=== PATIENT | male | born 1975 | race Caucasian/White ===

== ENCOUNTER 2017-01-05 15:00 | Emergency (ER) | payer MEDICAID ==
[~2017-01-05] VITALS: Ht 172.7 cm; Wt 95.3 kg
[~2017-01-05 15:00] MED LIST: CIPRO250 MG PO; CIPRO500 MG PO; CIPROFLOXACIN500 MG PO; COUMADIN6 MG PO; DITROPAN XL15 MG; HYDROCODONE BIT1 T11 PO; MACROBID100 M1 PO; NORCO 5-325 TA1 EACH PO; NORCO 7.5-3251 EACH PO; OXYBUTYNIN CHLO15 MG PO; PERCOCET 325 MG1 TA2 PO; PERCOCET 325 MG1 TA7 PO; TYLENOL WITH CO1 TA1 PO; VICODIN 5/500 505 MG PO; VICODIN 500 MG-1 TAB PO; VICODIN1 TAB PO; Vicodin 5/500 505 MG PO; XARELTO10 MG PO
[2017-01-05 15:41] LABS: BILIRUBIN 1+ (NEGATIVE); BLOOD 1+ (NEGATIVE); CLARITY CLEAR (CLEAR); COLOR YELLOW (YELLOW); GLUCOSE NEGATIVE (NEGATIVE); KETONE NEGATIVE (NEGATIVE); LEUKO ESTERASE NEGATIVE (NEGATIVE); NITRITE NEGATIVE (NEGATIVE); PH 5.5 (5.0-9.0); PROTEIN NEGATIVE (NEGATIVE); SPECIFIC GRAVITY >= 1.030 (1.005-1.030); UROBILINOGEN 0.2 E.U./dl (0.2-1.0)
[2017-01-05 15:57] LABS: BACTERIA TRACE; MUCOUS 2+; URINE REFLEX COMMENT YES (NO)
[2017-01-05] MEDS ORDERED: CIPRO500 MG PO (16:13)
[2017-01-05] MEDS ORDERED: HYDROCODONE BIT1 T11 PO (16:13)
== END 2017-01-05 16:15 | disposition home or self-care (01) ==
LOC: ED 15:00
PROVIDERS: Nurse Practitioner Family
DX: R30.0 Dysuria (principal); M54.5 Low back pain; F17.200 Nicotine dependence, unspecified, uncomplicated; Z88.0 Allergy status to penicillin; Z79.899 Other long term (current) drug therapy

== ENCOUNTER 2017-10-05 17:41 | Emergency (ER) | payer MEDICAID ==
[~2017-10-05] VITALS: Ht 170.1 cm; Wt 95.3 kg
[2017-10-05 18:15] LABS: BILIRUBIN NEGATIVE (NEGATIVE); BLOOD TRACE-INTACT (NEGATIVE); CLARITY CLEAR (CLEAR); COLOR YELLOW (YELLOW); GLUCOSE NEGATIVE (NEGATIVE); KETONE NEGATIVE (NEGATIVE); LEUKO ESTERASE NEGATIVE (NEGATIVE); NITRITE POSITIVE (NEGATIVE); PH 5.5 (5.0-9.0); SPECIFIC GRAVITY >= 1.030 (1.005-1.030); UROBILINOGEN 0.2 E.U./dl (0.2-1.0)
[2017-10-05 18:23] LABS: BACTERIA 3+
[2017-10-05 18:23] LABS: BASO % 0.3 % (0.0-1.0); EOS # 0.3 10*3/uL (0.0-0.4); EOS % 3.4 % (1.0-4.0); HEMATOCRIT 43.6 % (42.0-52.0); HEMOGLOBIN 14.1 g/dl (14.0-18.0); LYMPH # 2.6 10*3/uL (1.3-4.4); LYMPH % 29.4 % (27.0-41.0); MEAN CELL VOLUME 90.8 fl (80.0-94.0); MEAN CORPUSCULAR HGB 29.4 pg (27.0-31.0); MEAN CORPUSCULAR HGB CONC 32.3 g/dl (33.0-37.0); MONO # 0.9 10*3/uL (0.1-1.0); MONO % 9.6 % (3.0-9.0); NEUT # 5.1 10*3/uL (2.3-7.9); NEUT % 56.7 % (47.0-73.0); PLATELET COUNT AUTOMATED 251 10*3/uL (130-400); RED CELL DISTRI WIDTH 13.8 % (0-14.5)
[2017-10-05 18:39] LABS: ALBUMIN 3.7 gm/dl (3.1-4.5); ALKALINE PHOSPHATASE 96 U/L (45-117); BUN 14 mg/dl (7-24); CHLORIDE 106 mmol/L (98-107); CREATININE 0.71 mg/dL (0.70-1.30); POTASSIUM 4.5 mmol/L (3.5-5.1); SGOT/AST 35 IU/L (3-35); SGPT/ALT 79 U/L (12-78); SODIUM 141 mmol/L (136-145); TOTAL PROTEIN 7.8 gm/dL (6.4-8.2); TROPONIN I < 0.015 ng/ml (<0.045)
[2017-10-05] MEDS ORDERED: NORCO 5-325 TA1 EACH PO (18:46)
[2017-10-05] MEDS ORDERED: CIPRO500 MG PO (18:46)
== END 2017-10-05 19:00 | disposition home or self-care (01) ==
LOC: ED 17:41
PROVIDERS: Nurse Practitioner Family
DX: N39.0 Urinary tract infection, site not specified (principal); Z98.890 Other specified postprocedural states; Z79.899 Other long term (current) drug therapy; Z88.0 Allergy status to penicillin

== ENCOUNTER → 2017-11-16 | Outpatient (CLI) | payer MEDICAID | END | disposition home or self-care (01) | LOC: CT 14:32 | DX: K80.20 Calculus of gallbladder without cholecystitis without obstruction (principal) ==

== ENCOUNTER → 2017-11-25 | Outpatient (CLI) | payer MEDICAID | END | disposition home or self-care (01) | LOC: CT 14:51 | DX: R91.1 Solitary pulmonary nodule (principal); Z87.891 Personal history of nicotine dependence ==

== ENCOUNTER → 2018-06-03 | Outpatient (CLI) | payer MEDICAID ==
[~2018-06-03] MED LIST changes: +ATARAX,VISTARIL50 MG PO; +KENALOG 0.1%80 GM T
== END | disposition home or self-care (01) ==
LOC: CT 10:36
DX: K80.20 Calculus of gallbladder without cholecystitis without obstruction (principal)

== ENCOUNTER 2018-12-06 13:14 | Emergency (ER) | payer MEDICAID ==
[~2018-12-06] VITALS: Wt 99.8 kg
[2018-12-06 13:39] LABS: BILIRUBIN NEGATIVE (NEGATIVE); BLOOD 1+ (NEGATIVE); CLARITY SL CLOUDY (CLEAR); COLOR YELLOW (YELLOW); GLUCOSE NEGATIVE (NEGATIVE); KETONE NEGATIVE (NEGATIVE); LEUKO ESTERASE NEGATIVE (NEGATIVE); NITRITE NEGATIVE (NEGATIVE); SPECIFIC GRAVITY 1.025 (1.005-1.030); UROBILINOGEN 0.2 E.U./dl (0.2-1.0)
[2018-12-06 13:46] LABS: MUCOUS 1+
[2018-12-06 14:02] LABS: BASO % 0.3 % (0.0-1.0); EOS # 0.2 10*3/uL (0.0-0.4); EOS % 2.6 % (1.0-4.0); HEMATOCRIT 45.9 % (42.0-52.0); HEMOGLOBIN 15.2 g/dl (14.0-18.0); LYMPH # 2.3 10*3/uL (1.3-4.4); LYMPH % 28.3 % (27.0-41.0); MEAN CORPUSCULAR HGB 29.8 pg (27.0-31.0); MEAN CORPUSCULAR HGB CONC 33.1 g/dl (33.0-37.0); MONO # 0.8 10*3/uL (0.1-1.0); MONO % 9.9 % (3.0-9.0); NEUT # 4.6 10*3/uL (2.3-7.9); NEUT % 58.5 % (47.0-73.0); PLATELET COUNT AUTOMATED 283 10*3/uL (130-400); RED CELL DISTRI WIDTH 14.1 % (0-14.5); WHITE BLOOD COUNT 7.9 10*3/uL (4.8-10.8)
[2018-12-06 14:17] LABS: BUN 12 mg/dl (7-24); CHLORIDE 108 mmol/L (98-107); CREATININE 0.74 mg/dL (0.70-1.30); SODIUM 140 mmol/L (136-145)
[2018-12-06] MEDS ORDERED: Motrin,Rufen800 MG PO (15:55)
[2018-12-24] MEDS ORDERED: PHENERGAN25 M3 PO (18:19)
== END 2018-12-06 15:59 | disposition home or self-care (01) ==
LOC: ED 13:14
PROVIDERS: Emergency Medicine
DX: R32 Unspecified urinary incontinence (principal); M54.9 Dorsalgia, unspecified; F17.200 Nicotine dependence, unspecified, uncomplicated; Z88.0 Allergy status to penicillin; Z88.1 Allergy status to other antibiotic agents; Z79.899 Other long term (current) drug therapy; Z87.440 Personal history of urinary (tract) infections

== ENCOUNTER → 2019-06-15 | Outpatient (CLI) | payer MEDICAID ==
[~2019-06-15] MED LIST changes: +Motrin,Rufen800 MG PO; +PHENERGAN25 M3 PO
== END | disposition home or self-care (01) ==
LOC: CT 06-05 10:00
DX: I25.10 Atherosclerotic heart disease of native coronary artery without angina pectoris (principal)

== ENCOUNTER → 2020-07-15 | Outpatient (CLI) | payer MEDICAID | END | disposition home or self-care (01) | LOC: CT 06-17 11:00 | PROVIDERS: ATTEND Internal Medicine Critical Care Medicine | DX: R91.1 Solitary pulmonary nodule (principal); I25.10 Atherosclerotic heart disease of native coronary artery without angina pectoris; Z98.890 Other specified postprocedural states ==

== ENCOUNTER 2021-07-14 08:33 | Emergency (ER) | payer MEDICAID ==
[2021-07-14] MEDS ORDERED: PREDNISONE50 MG PO (10:22)
== END 2021-07-14 10:48 | disposition home or self-care (01) ==
LOC: ED 08:33
DX: L25.9 Unspecified contact dermatitis, unspecified cause (principal); F17.200 Nicotine dependence, unspecified, uncomplicated; Z88.0 Allergy status to penicillin; Z79.899 Other long term (current) drug therapy

== ENCOUNTER 2021-10-29 13:16 | Emergency (ER) | payer MEDICAID ==
[~2021-10-29 13:16] MED LIST changes: +PREDNISONE50 MG PO
[2021-10-29 14:35] LABS: BILIRUBIN Negative (Negative); BLOOD Negative (Negative); CLARITY Clear (Clear); COLOR Yellow (Yellow); GLUCOSE Negative (Negative); KETONE Negative (Negative); LEUKO ESTERASE Trace (Negative); NITRITE Negative (Negative); SPECIFIC GRAVITY 1.025 (1.001-1.030); UROBILINOGEN 0.2 E.U./dl (0.0-1.0)
[2021-10-29 14:41] LABS: MUCOUS 2+
[2021-10-29 14:42] LABS: BACTERIA 1+; EPITHELIAL CELLS 0-2
[2021-10-29] MEDS ORDERED: CIPRO500 MG PO (14:46)
== END 2021-10-29 15:01 | disposition home or self-care (01) ==
LOC: ED 13:16
PROVIDERS: Physician Assistant
DX: N39.0 Urinary tract infection, site not specified (principal)

== ENCOUNTER 2021-12-19 15:22 | Emergency (ER) | payer MEDICAID ==
[~2021-12-19] VITALS: Wt 99.8 kg
[2021-12-19] MEDS ORDERED: VIBRAMYCIN100 MG PO (15:55)
== END 2021-12-19 16:17 | disposition home or self-care (01) ==
LOC: ED 15:22
DX: A26.0 Cutaneous erysipeloid (principal); M25.511 Pain in right shoulder; M25.512 Pain in left shoulder; Z88.0 Allergy status to penicillin; Z79.899 Other long term (current) drug therapy; Z79.2 Long term (current) use of antibiotics; Z98.890 Other specified postprocedural states

== ENCOUNTER 2022-03-02 09:23 | Inpatient (IN) | payer MEDICAID ==
[~2022-03-02] VITALS: Ht 170.1 cm; Wt 98.0 kg
[2022-03-02] VITALS (11 sets, daily range): BP systolic 123–167; BP diastolic 83–98
[~2022-03-02 09:23] MED LIST changes: +VIBRAMYCIN100 MG PO
[2022-03-02 10:18] LABS: BASO % 0.3 % (0.0-1.0); EOS # 0.2 10*3/uL (0.0-0.4); EOS % 1.9 % (1.0-4.0); HEMATOCRIT 40.6 % (42.0-52.0); LYMPH # 2.7 10*3/uL (1.3-4.4); LYMPH % 23.1 % (27.0-41.0); MEAN CELL VOLUME 87.7 fl (80.0-94.0); MEAN CORPUSCULAR HGB 29.8 pg (27.0-31.0); MEAN PLATELET VOLUME 9.2 fl (9.6-12.3); MONO # 1.4 10*3/uL (0.1-1.0); MONO % 12.1 % (3.0-9.0); NEUT # 7.3 10*3/uL (2.3-7.9); NEUT % 62.1 % (47.0-73.0); PLATELET COUNT AUTOMATED 284 10*3/uL (130-400); RED BLOOD COUNT 4.63 10*6/uL (4.50-5.90); RED CELL DISTRI WIDTH 13.6 % (0-14.5); WHITE BLOOD COUNT 11.7 10*3/uL (4.8-10.8)
[2022-03-02 10:32] LABS: ALKALINE PHOSPHATASE 90 U/L (45-117); BUN 11 mg/dl (7-24); CHLORIDE 108 mmol/L (98-107); POTASSIUM 3.7 mmol/L (3.5-5.1); SGOT/AST 27 IU/L (3-35); SGPT/ALT 61 U/L (12-78); SODIUM 138 mmol/L (136-145); TOTAL PROTEIN 7.6 gm/dL (6.4-8.2)
[2022-03-02] MEDS ORDERED: OMEPRAZOLE40 MG PO (12:24)
[2022-03-02] MEDS ORDERED: ATORVASTATIN CA10 M1 PO (12:24)
[2022-03-03] VITALS: BP 142/74
[2022-03-03 08:00] VITALS: BP 99/60
[2022-03-03 08:03] LABS: BASO % 0.2 % (0.0-1.0); EOS # 0.1 10*3/uL (0.0-0.4); HEMATOCRIT 33.8 % (42.0-52.0); LYMPH # 1.7 10*3/uL (1.3-4.4); MEAN CELL VOLUME 89.2 fl (80.0-94.0); MEAN CORPUSCULAR HGB 29.8 pg (27.0-31.0); MEAN CORPUSCULAR HGB CONC 33.4 g/dl (33.0-37.0); MEAN PLATELET VOLUME 9.3 fl (9.6-12.3); MONO # 1.2 10*3/uL (0.1-1.0); MONO % 13.6 % (3.0-9.0); NEUT % 65.9 % (47.0-73.0); PLATELET COUNT AUTOMATED 219 10*3/uL (130-400); RED BLOOD COUNT 3.79 10*6/uL (4.50-5.90); RED CELL DISTRI WIDTH 13.7 % (0-14.5); WHITE BLOOD COUNT 9.1 10*3/uL (4.8-10.8)
[2022-03-03 08:20] LABS: BUN 10 mg/dl (7-24); CHLORIDE 107 mmol/L (98-107); CREATININE 0.76 mg/dL (0.70-1.30); POTASSIUM 3.5 mmol/L (3.5-5.1); SODIUM 137 mmol/L (136-145)
[2022-03-03 08:28] LABS: THYROID STIM HORMONE (HS) 0.284 uIU/ml (0.358-4.75)
[2022-03-03] MEDS ORDERED: HYDROCODONE-AC1 EAC1 PO (11:50)
[2022-03-03 12:00] VITALS: BP 124/91
[2022-03-03] MEDS ORDERED: VIBRAMYCIN HYC100 MG PO (15:19)
[2022-03-03 16:00] VITALS: BP 127/93
[2022-03-03 17:13] LABS: ACT PARTIAL THROMBO TIME 29.4 SECONDS (20.0-32.1)
== END 2022-03-03 18:06 | disposition home or self-care (01) | DRG 313 ==
LOC: ED 09:23 → EDHOLD 15:07 → 5E 15:07
PROVIDERS: Internal Medicine; Student in an Organized Health Care Education/Training Program; ADMIT Internal Medicine; ATTEND Internal Medicine
PROC: 0QSK04Z Reposition Left Fibula with Internal Fixation Device, Open Approach (ICD-10-PCS; principal; 2022-03-02)
PROC: 0QSH35Z Reposition Left Tibia with External Fixation Device, Percutaneous Approach (ICD-10-PCS; 2022-03-02)
DX: S82.402A Unspecified fracture of shaft of left fibula, initial encounter for closed fracture (principal); G82.20 Paraplegia, unspecified; Z20.822 Contact with and (suspected) exposure to COVID-19; S82.202A Unspecified fracture of shaft of left tibia, initial encounter for closed fracture; D72.829 Elevated white blood cell count, unspecified; D64.9 Anemia, unspecified; E87.8 Other disorders of electrolyte and fluid balance, not elsewhere classified; R73.9 Hyperglycemia, unspecified; G89.29 Other chronic pain; F17.210 Nicotine dependence, cigarettes, uncomplicated; S82.872A Displaced pilon fracture of left tibia, initial encounter for closed fracture; W18.39XA Other fall on same level, initial encounter; Z71.6 Tobacco abuse counseling; Y93.89 Activity, other specified; Y92.89 Other specified places as the place of occurrence of the external cause; Y99.8 Other external cause status; Z79.899 Other long term (current) drug therapy; Z88.0 Allergy status to penicillin; Z82.49 Family history of ischemic heart disease and other diseases of the circulatory system

== ENCOUNTER 2022-03-09 18:41 | Inpatient (IN) | payer MEDICAID ==
[~2022-03-09] VITALS: Ht 170.1 cm; Wt 99.1 kg
[~2022-03-09 18:41] MED LIST changes: +ATORVASTATIN CA10 M1 PO; +HYDROCODONE-AC1 EAC1 PO; +OMEPRAZOLE40 MG PO; +VIBRAMYCIN HYC100 MG PO
[2022-03-09 20:08] VITALS: BP 133/90
[2022-03-09 23:56] LABS: BILIRUBIN Negative (Negative); BLOOD Negative (Negative); CLARITY Clear (Clear); COLOR Yellow (Yellow); GLUCOSE Negative (Negative); KETONE Negative (Negative); LEUKO ESTERASE Negative (Negative); NITRITE Negative (Negative); UROBILINOGEN 0.2 E.U./dl (0.0-1.0)
[2022-03-09 23:58] VITALS: BP 136/86
[2022-03-10 00:12] LABS: WBC 0-2 wbc/hpf (0-5)
[2022-03-10 00:30] VITALS: BP 138/84
[2022-03-10] MEDS ORDERED: ZESTRIL20 MG PO (01:55)
[2022-03-10 06:13] LABS: BASO # 0.1 10*3/uL (0.0-0.1); BASO % 0.6 % (0.0-1.0); EOS # 0.3 10*3/uL (0.0-0.4); EOS % 2.5 % (1.0-4.0); HEMATOCRIT 33.4 % (42.0-52.0); LYMPH % 19.4 % (27.0-41.0); MEAN CELL VOLUME 90.5 fl (80.0-94.0); MEAN CORPUSCULAR HGB 29.8 pg (27.0-31.0); MEAN CORPUSCULAR HGB CONC 32.9 g/dl (33.0-37.0); MEAN PLATELET VOLUME 8.6 fl (9.6-12.3); MONO # 1.2 10*3/uL (0.1-1.0); NEUT # 6.5 10*3/uL (2.3-7.9); NEUT % 64.7 % (47.0-73.0); PLATELET COUNT AUTOMATED 395 10*3/uL (130-400); RED BLOOD COUNT 3.69 10*6/uL (4.50-5.90); RED CELL DISTRI WIDTH 13.3 % (0-14.5)
[2022-03-10 06:22] LABS: ACT PARTIAL THROMBO TIME 28.4 SECONDS (20.0-32.1)
[2022-03-10 06:44] LABS: ALKALINE PHOSPHATASE 88 U/L (45-117); BUN 18 mg/dl (7-24); CHLORIDE 107 mmol/L (98-107); CREATININE 0.74 mg/dL (0.70-1.30); POTASSIUM 3.7 mmol/L (3.5-5.1); SGOT/AST 24 IU/L (3-35); SGPT/ALT 48 U/L (12-78); SODIUM 137 mmol/L (136-145); TOTAL PROTEIN 7.1 gm/dL (6.4-8.2)
[2022-03-10 08:00] VITALS: BP 117/64
[2022-03-10 12:00] VITALS: BP 95/51
[2022-03-10 16:00] VITALS: BP 124/68
[2022-03-10 20:00] VITALS: BP 127/66
[2022-03-11] VITALS (10 sets, daily range): BP systolic 97–134; BP diastolic 41–92
[2022-03-11 06:27] LABS: BUN 14 mg/dl (7-24); CHLORIDE 107 mmol/L (98-107); POTASSIUM 4.1 mmol/L (3.5-5.1); SODIUM 140 mmol/L (136-145)
[2022-03-11 06:29] LABS: CREATININE 0.63 mg/dL (0.70-1.30)
[2022-03-11 06:32] LABS: BASO % 0.4 % (0.0-1.0); EOS # 0.3 10*3/uL (0.0-0.4); EOS % 3.7 % (1.0-4.0); HEMATOCRIT 33.2 % (42.0-52.0); LYMPH # 2.3 10*3/uL (1.3-4.4); LYMPH % 28.5 % (27.0-41.0); MEAN CELL VOLUME 91.5 fl (80.0-94.0); MEAN CORPUSCULAR HGB 29.5 pg (27.0-31.0); MEAN CORPUSCULAR HGB CONC 32.2 g/dl (33.0-37.0); MEAN PLATELET VOLUME 8.5 fl (9.6-12.3); MONO # 1.1 10*3/uL (0.1-1.0); NEUT # 4.4 10*3/uL (2.3-7.9); PLATELET COUNT AUTOMATED 372 10*3/uL (130-400); RED BLOOD COUNT 3.63 10*6/uL (4.50-5.90); RED CELL DISTRI WIDTH 13.3 % (0-14.5); WHITE BLOOD COUNT 8.1 10*3/uL (4.8-10.8)
[2022-03-11 22:16] LABS: BASO % 0.2 % (0.0-1.0); EOS % 0.4 % (1.0-4.0); HEMATOCRIT 31.3 % (42.0-52.0); LYMPH # 1.2 10*3/uL (1.3-4.4); LYMPH % 11.4 % (27.0-41.0); MEAN CELL VOLUME 91.3 fl (80.0-94.0); MEAN CORPUSCULAR HGB 29.2 pg (27.0-31.0); MEAN CORPUSCULAR HGB CONC 31.9 g/dl (33.0-37.0); MONO # 1.3 10*3/uL (0.1-1.0); MONO % 12.9 % (3.0-9.0); NEUT # 7.6 10*3/uL (2.3-7.9); NEUT % 74.4 % (47.0-73.0); PLATELET COUNT AUTOMATED 370 10*3/uL (130-400); RED BLOOD COUNT 3.43 10*6/uL (4.50-5.90); RED CELL DISTRI WIDTH 13.3 % (0-14.5); WHITE BLOOD COUNT 10.2 10*3/uL (4.8-10.8)
[2022-03-12] VITALS: BP 138/78
[2022-03-12 06:44] LABS: BASO % 0.2 % (0.0-1.0); EOS % 0.2 % (1.0-4.0); HEMATOCRIT 28.7 % (42.0-52.0); LYMPH # 1.3 10*3/uL (1.3-4.4); LYMPH % 13.3 % (27.0-41.0); MEAN CELL VOLUME 91.4 fl (80.0-94.0); MEAN CORPUSCULAR HGB 29.6 pg (27.0-31.0); MEAN CORPUSCULAR HGB CONC 32.4 g/dl (33.0-37.0); MEAN PLATELET VOLUME 8.5 fl (9.6-12.3); MONO # 1.5 10*3/uL (0.1-1.0); MONO % 15.4 % (3.0-9.0); NEUT # 6.6 10*3/uL (2.3-7.9); NEUT % 70.4 % (47.0-73.0); PLATELET COUNT AUTOMATED 346 10*3/uL (130-400); RED BLOOD COUNT 3.14 10*6/uL (4.50-5.90); RED CELL DISTRI WIDTH 13.3 % (0-14.5); WHITE BLOOD COUNT 9.4 10*3/uL (4.8-10.8)
[2022-03-12 06:46] LABS: BUN 13 mg/dl (7-24); CHLORIDE 106 mmol/L (98-107); CREATININE 0.73 mg/dL (0.70-1.30); POTASSIUM 3.6 mmol/L (3.5-5.1); SODIUM 138 mmol/L (136-145)
[2022-03-12 08:00] VITALS: BP 111/51
[2022-03-12 12:00] VITALS: BP 99/63
[2022-03-12 16:00] VITALS: BP 110/50
[2022-03-12 20:00] VITALS: BP 133/74
[2022-03-13] VITALS: BP 118/87
[2022-03-13 08:00] VITALS: BP 106/55
[2022-03-13 12:00] VITALS: BP 95/46
[2022-03-13] MEDS ORDERED: HYDROCODONE-AC1 EAC1 PO (12:39)
[2022-03-13] MEDS ORDERED: LISINOPRIL10 M1 PO (12:39)
[2022-03-13] MEDS ORDERED: VITAMIN D350 MC2 PO (12:39)
[2022-03-13] MEDS ORDERED: VIBRAMYCIN HYC100 MG PO (12:39)
== END 2022-03-13 17:03 | DRG 313 ==
LOC: ED 18:41 → 4E 23:45 → EDHOLD 23:45 → 4E 23:59
PROVIDERS: Family Medicine; Internal Medicine; Student in an Organized Health Care Education/Training Program; ADMIT Internal Medicine; ATTEND Internal Medicine
PROC: 0QSK04Z Reposition Left Fibula with Internal Fixation Device, Open Approach (ICD-10-PCS; principal; 2022-03-11)
PROC: 0QSH04Z Reposition Left Tibia with Internal Fixation Device, Open Approach (ICD-10-PCS; 2022-03-11)
PROC: 0QSL04Z Reposition Right Tarsal with Internal Fixation Device, Open Approach (ICD-10-PCS; 2022-03-11)
PROC: 0QSH04Z Reposition Left Tibia with Internal Fixation Device, Open Approach (ICD-10-PCS; 2022-03-11)
PROC: 0SPU0JZ Removal of Synthetic Substitute from Left Knee Joint, Femoral Surface, Open Approach (ICD-10-PCS; 2022-03-11)
DX: S82.871A Displaced pilon fracture of right tibia, initial encounter for closed fracture (principal); R39.15 Urgency of urination; M54.50 Low back pain, unspecified; E44.0 Moderate protein-calorie malnutrition; Z20.822 Contact with and (suspected) exposure to COVID-19; F12.90 Cannabis use, unspecified, uncomplicated; G82.20 Paraplegia, unspecified; G89.29 Other chronic pain; M54.9 Dorsalgia, unspecified; I10 Essential (primary) hypertension; K59.00 Constipation, unspecified; R73.9 Hyperglycemia, unspecified; D64.9 Anemia, unspecified; S82.872A Displaced pilon fracture of left tibia, initial encounter for closed fracture; S54.02XA Injury of ulnar nerve at forearm level, left arm, initial encounter; Z96.7 Presence of other bone and tendon implants; W18.39XA Other fall on same level, initial encounter; Y93.89 Activity, other specified; Y92.89 Other specified places as the place of occurrence of the external cause; Y99.8 Other external cause status; Z88.0 Allergy status to penicillin; Z82.49 Family history of ischemic heart disease and other diseases of the circulatory system; Z68.34 Body mass index [BMI] 34.0-34.9, adult

== ENCOUNTER → 2022-03-11 | Day surgery (SDC) | payer MEDICAID ==
[~2022-03-11] VITALS: Ht 170.1 cm; Wt 98.0 kg
[~2022-03-11] MED LIST changes: +LISINOPRIL10 M1 PO; +VITAMIN D350 MC2 PO; +ZESTRIL20 MG PO
== END | disposition home or self-care (01) ==
LOC: SDC 03-09 11:45
PROVIDERS: ATTEND Podiatrist
DX: Z47.2 Encounter for removal of internal fixation device (principal); K21.9 Gastro-esophageal reflux disease without esophagitis; Z86.718 Personal history of other venous thrombosis and embolism; Z88.0 Allergy status to penicillin

== ENCOUNTER → 2022-06-03 | Day surgery (SDC) | payer MEDICAID ==
[2022-06-01 13:24] VITALS: BP 142/82
[~2022-06-03] VITALS: Ht 170.1 cm; Wt 99.8 kg
[~2022-06-03] MED LIST changes: +TRAMADOL HCL50 MG PO
[2022-06-03 06:59] VITALS: BP 134/104
[2022-06-03 08:35] VITALS: BP 109/69
[2022-06-03 08:50] VITALS: BP 107/86
[2022-06-03 09:05] VITALS: BP 117/68
[2022-06-04 11:07] LABS: ACID FAST SPEC PROCESSING Tissue Grinding (.)
[2022-06-04 13:06] LABS: ACID FAST SPEC PROCESSING Tissue Grinding (.)
== END | disposition home or self-care (01) ==
LOC: SDC 06-01 13:15
PROVIDERS: ATTEND Podiatrist Foot & Ankle Surgery
DX: S91.001A Unspecified open wound, right ankle, initial encounter (principal); S91.002A Unspecified open wound, left ankle, initial encounter; I10 Essential (primary) hypertension; E78.00 Pure hypercholesterolemia, unspecified; K21.9 Gastro-esophageal reflux disease without esophagitis; F32.A Depression, unspecified; F17.210 Nicotine dependence, cigarettes, uncomplicated; Z88.0 Allergy status to penicillin; Z79.84 Long term (current) use of oral hypoglycemic drugs; Z79.899 Other long term (current) drug therapy; X58.XXXA Exposure to other specified factors, initial encounter; Y93.89 Activity, other specified; Y92.89 Other specified places as the place of occurrence of the external cause; Y99.8 Other external cause status

== ENCOUNTER → 2022-06-24 | Day surgery (SDC) | payer MEDICAID ==
[~2022-06-24] VITALS: Ht 170.1 cm; Wt 98.9 kg
[2022-06-24 09:50] VITALS: BP 145/87
[2022-06-24 13:41] VITALS: BP 131/82
[2022-06-24 13:55] VITALS: BP 134/87
[2022-06-26 11:07] LABS: ACID FAST SPEC PROCESSING Tissue Grinding (.)
== END | disposition home or self-care (01) ==
LOC: SDC 06-22 11:45
PROVIDERS: Podiatrist Foot & Ankle Surgery; ATTEND Podiatrist Foot & Ankle Surgery
DX: T84.84XA Pain due to internal orthopedic prosthetic devices, implants and grafts, initial encounter (principal); L97.328 Non-pressure chronic ulcer of left ankle with other specified severity; M86.8X7 Other osteomyelitis, ankle and foot; I10 Essential (primary) hypertension; K21.9 Gastro-esophageal reflux disease without esophagitis; F32.A Depression, unspecified; F43.10 Post-traumatic stress disorder, unspecified; E78.00 Pure hypercholesterolemia, unspecified; Z88.0 Allergy status to penicillin; X58.XXXA Exposure to other specified factors, initial encounter; Y93.89 Activity, other specified; Y92.89 Other specified places as the place of occurrence of the external cause; Y99.8 Other external cause status

== ENCOUNTER → 2022-08-26 | Day surgery (SDC) | payer MEDICAID ==
[~2022-08-26] VITALS: Ht 170.1 cm; Wt 98.9 kg
[2022-08-26 07:47] VITALS: BP 131/57
[2022-08-26 10:10] VITALS: BP 118/78
[2022-08-26 10:25] VITALS: BP 124/76
[2022-08-26 10:34] VITALS: BP 102/72
[2022-08-27 09:07] LABS: ACID FAST SPEC PROCESSING Tissue Grinding (.)
[2022-08-27 09:07] LABS: ACID FAST SPEC PROCESSING Tissue Grinding (.)
== END | disposition home or self-care (01) ==
LOC: SDC 08-25 08:45
PROVIDERS: ATTEND Podiatrist Foot & Ankle Surgery
DX: S91.302A Unspecified open wound, left foot, initial encounter (principal); S91.301A Unspecified open wound, right foot, initial encounter; K21.9 Gastro-esophageal reflux disease without esophagitis; F43.10 Post-traumatic stress disorder, unspecified; F32.A Depression, unspecified; I10 Essential (primary) hypertension; E78.00 Pure hypercholesterolemia, unspecified; F17.210 Nicotine dependence, cigarettes, uncomplicated; Z88.0 Allergy status to penicillin; X58.XXXA Exposure to other specified factors, initial encounter; Y93.89 Activity, other specified; Y92.89 Other specified places as the place of occurrence of the external cause; Y99.8 Other external cause status

== ENCOUNTER → 2022-10-07 | Day surgery (SDC) | payer MEDICAID ==
[~2022-10-07] VITALS: Ht 170.1 cm; Wt 99.8 kg
[2022-10-07 07:17] VITALS: BP 146/97
[2022-10-07 09:51] VITALS: BP 121/92
[2022-10-07 10:06] VITALS: BP 127/97
[2022-10-07 10:21] VITALS: BP 104/85
[2022-10-07 10:36] VITALS: BP 153/89
[2022-10-07 10:51] VITALS: BP 139/80
[2022-10-08 10:07] LABS: ACID FAST SPEC PROCESSING Tissue Grinding (.)
[2022-10-08 10:07] LABS: ACID FAST SPEC PROCESSING Tissue Grinding (.)
== END | disposition home or self-care (01) ==
LOC: SDC 10-05 11:45
PROVIDERS: ATTEND Podiatrist Foot & Ankle Surgery
DX: T84.84XA Pain due to internal orthopedic prosthetic devices, implants and grafts, initial encounter (principal); K21.9 Gastro-esophageal reflux disease without esophagitis; F32.A Depression, unspecified; F43.10 Post-traumatic stress disorder, unspecified; I10 Essential (primary) hypertension; E78.00 Pure hypercholesterolemia, unspecified; Y83.8 Other surgical procedures as the cause of abnormal reaction of the patient, or of later complication, without mention of misadventure at the time of the procedure

== ENCOUNTER → 2022-11-25 | Day surgery (SDC) | payer MEDICAID ==
[2022-11-25 07:30] VITALS: BP 131/89
[2022-11-25 11:19] VITALS: BP 151/73
[2022-11-25 11:27] VITALS: BP 129/92
[2022-11-25 11:42] VITALS: BP 148/99
[2022-11-26 15:07] LABS: ACID FAST SPEC PROCESSING Tissue Grinding (.)
[2022-11-26 15:07] LABS: ACID FAST SPEC PROCESSING Tissue Grinding (.)
== END ==
LOC: SDC 11-20 13:15
PROVIDERS: ATTEND Podiatrist
DX: M25.572 Pain in left ankle and joints of left foot (principal); M25.571 Pain in right ankle and joints of right foot

== ENCOUNTER 2023-03-10 14:49 | Emergency (ER) | payer MEDICAID ==
[~2023-03-10] VITALS: Ht 167.6 cm; Wt 96.6 kg
[~2023-03-10 14:49] MED LIST changes: +BENADRYL ALLERG25 M5 PO; +DALVANCE500 MG IV; +ERTAPENEM1 GM IV
[2023-03-10 16:37] LABS: MEAN CELL VOLUME 86.3 fl (80.0-94.0); MEAN CORPUSCULAR HGB 28.3 pg (27.0-31.0); MEAN CORPUSCULAR HGB CONC 32.8 g/dl (33.0-37.0); MEAN PLATELET VOLUME 8.6 fl (9.6-12.3); PLATELET COUNT AUTOMATED 316 10*3/uL (130-400); RED BLOOD COUNT 4.52 10*6/uL (4.50-5.90); RED CELL DISTRI WIDTH 16.2 % (0-14.5); WHITE BLOOD COUNT 24.5 10*3/uL (4.8-10.8)
[2023-03-10 16:38] LABS: MANUAL DIFF REFLEX YES
[2023-03-10 17:00] LABS: ALKALINE PHOSPHATASE 101 U/L (46-116); BUN 15 mg/dl (9-23); CHLORIDE 102 mmol/L (98-107); CPK 55 U/L (34-171); POTASSIUM 3.5 mmol/L (3.4-5.1); SGPT/ALT 95 U/L (10-49); TOTAL PROTEIN 7.2 gm/dL (6.0-8.0)
[2023-03-10 17:09] LABS: PLATELET SUFFICIENCY NORMAL (NORMAL); TOTAL CELLS COUNTED 100 #CELLS
[2023-03-10 17:10] LABS: POLYCHROMASIA SLIGHT; ROULEAUX SLIGHT
== END 2023-03-11 10:01 | disposition short-term general hospital (02) ==
LOC: ED 14:49
PROVIDERS: Nurse Practitioner Family
DX: L51.1 Stevens-Johnson syndrome (principal); E11.9 Type 2 diabetes mellitus without complications; I10 Essential (primary) hypertension; E78.00 Pure hypercholesterolemia, unspecified; E11.65 Type 2 diabetes mellitus with hyperglycemia; D64.9 Anemia, unspecified; K21.9 Gastro-esophageal reflux disease without esophagitis; F32.A Depression, unspecified; Z88.0 Allergy status to penicillin; Z86.718 Personal history of other venous thrombosis and embolism; Z98.890 Other specified postprocedural states; F17.200 Nicotine dependence, unspecified, uncomplicated

== ENCOUNTER 2024-10-16 07:51 | Emergency (ER) | payer MEDICAID ==
[~2024-10-16] VITALS: Wt 99.8 kg
[2024-10-16] MEDS ORDERED: cefTRIAXone Sodium 1 GM/10 ML SYR IV ONE (08:15)
[2024-10-16] MEDS ORDERED: SODIUM CHLORIDE 0.9% 1,000 ML IV ONE (08:15)
[2024-10-16] MEDS ORDERED: MORPHINE Sulfate 2 MG/ML SYR IV ONE (08:15)
[2024-10-16] MEDS ORDERED: Ondansetron Hydrochloride 4 MG/2 ML VIAL IV ONE (08:15)
[2024-10-16 08:29] LABS: BASO % 0.3 % (0.0-1.0); EOS # 0.3 10*3/uL (0.0-0.4); EOS % 2.6 % (1.0-4.0); HEMATOCRIT 44.6 % (42.0-52.0); MEAN PLATELET VOLUME 8.9 fl (9.6-12.3); MONO # 1.2 10*3/uL (0.1-1.0); MONO % 12.4 % (3.0-9.0); NEUT # 4.8 10*3/uL (2.3-7.9); NEUT % 49.6 % (47.0-73.0); PLATELET COUNT AUTOMATED 283 10*3/uL (130-400); RED BLOOD COUNT 5.07 10*6/uL (4.50-5.90); RED CELL DISTRI WIDTH 13.3 % (0-14.5); WHITE BLOOD COUNT 9.6 10*3/uL (4.8-10.8)
[2024-10-16 08:42] LABS: BILIRUBIN Negative (Negative); BLOOD 1+ (Negative); COLOR Yellow (Yellow); GLUCOSE Negative (Negative); KETONE Trace (Negative); LEUKO ESTERASE 1+ (Negative); NITRITE Positive (Negative); PH 5.5 (4.5-8.0); SPECIFIC GRAVITY 1.025 (1.001-1.030); UROBILINOGEN 0.2 E.U./dl (0.0-1.0)
[2024-10-16 08:45] LABS: CLARITY Cloudy (Clear)
[2024-10-16 08:53] LABS: BUN 14 mg/dl (9-23); CHLORIDE 104 mmol/L (98-107); POTASSIUM 3.9 mmol/L (3.4-5.1)
[2024-10-16 09:05] LABS: BACTERIA 4+; WBC 21-30 wbc/hpf (0-5)
[2024-10-16] MEDS ORDERED: CIPRO500 MG PO (09:10)
[2024-10-16] MEDS ORDERED: MELOXICAM15 MG PO (09:10)
== END 2024-10-16 10:19 | disposition home or self-care (01) ==
LOC: ED 07:51
PROVIDERS: Emergency Medicine
DX: N39.0 Urinary tract infection, site not specified (principal); M54.50 Low back pain, unspecified; I10 Essential (primary) hypertension; E78.5 Hyperlipidemia, unspecified; Z88.0 Allergy status to penicillin; Z79.899 Other long term (current) drug therapy; Z98.890 Other specified postprocedural states; Z87.891 Personal history of nicotine dependence; Z86.718 Personal history of other venous thrombosis and embolism